=== PATIENT | female | born 1975 | race African-American/Black ===

== ENCOUNTER 2016-07-27 10:56 | Emergency (ER) | payer OTHER ==
[2016-07-27 11:05] VITALS: BP 132/78; PULSE 88; TEMP 97.9; BMI 46.8
--- NOTE | 2016-07-27 11:49 | PDOC ---
History of Present Illness - General Chief Complaint: Pain, Acute Stated Complaint: FATIGUE, FEET SORES Time Seen by Provider: 07/27/16 11:27 History Source: Patient Exam Limitations: No Limitations - History of Present Illness Initial Comments: 07/27/16 11:43 40 yr female with c/o feeling generalised weakness and painful feet. Pt states she has had theses symptoms for one month. Pt denies fever or chills neg nvd. neg weight loss. Pt has history of asthma and chronic low back pain . Pt c/o sores to the feet , bumps. 07/27/16 11:47 Past History - Past Medical History Allergies/Adverse Reactions: Allergies Allergy/AdvReac Type Severity Reaction Status Date / Time No Known Allergies Allergy Verified 07/27/16 11:05 Home Medications: Ambulatory Orders NK [No Known Home Medication] 07/27/16 Asthma: Yes Other medical history: PATIENT DENIES MEDICAL HISTORY - Psycho/Social/Smoking Cessation Hx Suicidal Ideation: No Smoking History: Current every day smoker Number of Cigarettes Smoked Daily: 1 Information on smoking cessation initiated: No Hx Alcohol Use: No Drug/Substance Use Hx: No Review of Systems - Review of Systems Able to Perform ROS?: Yes Is the patient limited Setswana proficient: No Constitutional: Yes: Symptoms Reported, Malaise HEENTM: No: Symptoms Reported Respiratory: No: Symptoms reported Cardiac (ROS): No: Symptoms Reported ABD/GI: No: Symptoms Reported : No: Symptoms Reported Musculoskeletal: No: Symptoms Reported Integumentary: Yes: See HPI, Dryness (feet dry and scaly ) *Physical Exam - Vital Signs Last Vital Signs Temp Pulse Resp BP Pulse Ox 97.9 F 88 16 132/78 97 07/27/16 11:02 07/27/16 11:02 07/27/16 11:02 07/27/16 11:02 07/27/16 11:02 - Physical Exam General Appearance: Yes: Nourished, Appropriately Dressed HEENT: positive: EOMI, ERIKA Neck: positive: Supple Respiratory/Chest: positive: Lungs Clear, Normal Breath Sounds Cardiovascular: positive: Regular Rhythm, Regular Rate Gastrointestinal/Abdominal: positive: Normal Bowel Sounds, Soft, Other (obese) Musculoskeletal: positive: Normal Inspection Extremity: positive: Normal Capillary Refill, Normal Inspection, Normal Range of Motion Integumentary: positive: Normal Color, Dry, Warm, Other (bilateral soles of feet with scaly peeling skin, dark colored macules , no palpbale bony tenderness ) Neurologic: positive: Fully Oriented, Alert, Normal Mood/Affect, Normal Response , Motor Strength 08/10 ED Treatment Course - LABORATORY CBC & Chemistry Diagram: 07/27/16 11:41 07/27/16 11:41 Medical Decision Making - Medical Decision Making 07/27/16 11:48 cc: dry scaly skin on feet with "sores" discoloration spots to bottom of feet no abd pain or tenderness will check labs, RPR urine 07/27/16 11:49 *DC/Admit/Observation/Transfer Diagnosis at time of Disposition: Weakness, Dry skin dermatitis - Discharge Dispostion Disposition: HOME Condition at time of disposition: Good - Referrals Referrals: Raul Mckeon [Primary Care Provider] - Bladimir Garcia MD [Staff Physician] - - Patient Instructions Additional Instructions: 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
[2016-07-27 11:57] LABS: BASOPHIL 0.6 % (0-2.0); MCH 26.7 pg (25.7-33.7); MEAN PLT VOLUME 7.5 fl (7.5-11.1); NEUTROPHILS 46.9 % (42.8-82.8); PLATELET COUNT 268 K/MM3 (134-434); RDW 18.2 % (11.6-15.6); WHITE BLOOD COUNT 6.1 K/mm3 (4.0-10.0)
[2016-07-27 12:24] LABS: ALBUMIN 3.8 g/dl (3.4-5.0); ALK PHOS 54 U/L (45-117); ANION GAP 8 (8-16); BILIRUBIN,TOTAL 0.3 mg/dL (0.2-1.0); CO2 26 mmol/L (21-32); COCKROFT - GAULT 214.1915; CREATININE 0.6 mg/dL (0.55-1.02); GLUCOSE,RANDOM 96 mg/dL (74-106); SGOT/AST 17 U/L (15-37); SGPT/ALT 23 U/L (12-78); TOT PROT 7.8 g/dl (6.4-8.2)
[2016-07-27] MEDS ORDERED: IBUPROFEN 600 MG TABLET (FP) PO ONE ×2 (12:27→12:31)
== END 2016-07-27 12:40 | disposition home or self-care (01) ==
LOC: JERFT 10:56
DX: L85.3 Xerosis cutis (principal); M54.5 Low back pain; G89.29 Other chronic pain; J45.909 Unspecified asthma, uncomplicated; F17.210 Nicotine dependence, cigarettes, uncomplicated
CPT/HCPCS: 36415; 80053; 84703; 85025; 86593; 99281-25